=== PATIENT | female | born 2005 | race Caucasian/White ===

== ENCOUNTER 2023-09-03 15:13 | Emergency (ER) | payer OTHER, SELFPAY ==
[2023-09-03 15:22] VITALS: BP 132/81; PULSE 88; RESP 20; TEMP 37.1; O2SAT 98; BMI 23.1
--- NOTE | 2023-09-03 15:30 | DI.RAD.S_ITS ---
PROCEDURE: XR WRIST LT MIN 3V INDICATIONS: Bucked from horse with swelling pain TECHNIQUE: 3 views of the wrist were acquired. COMPARISON: [facility], CR, XR ELBOW LT MIN 3V, 09/03/2023, 15:31. [facility], CR, XR FOREARM LT 2V, 09/03/2023, 15:31. FINDINGS: Bones: There is a comminuted distal radius fracture, with intra-articular involvement. There is moderate dorsal angulation. No radiocarpal dislocation can be seen. No lunate dislocation is seen. There is a mildly displaced, comminuted ulnar styloid fracture. Soft tissues: Associated soft tissue swelling is seen. IMPRESSION: Distal radius fracture, with angulation and intra-articular involvement. There is an associated ulnar styloid fracture. Dictated by: Quentin Ingram M.D. on 09/03/2023 at 15:03 Approved by: Quentin Ingram M.D. on 09/03/2023 at 15:06
--- NOTE | 2023-09-03 15:30 | DI.RAD.S_ITS ---
PROCEDURE: XR FOREARM LT 2V INDICATIONS: Bucked from horse with swelling pain TECHNIQUE: 2 views of the forearm were acquired. COMPARISON: [facility], CR, XR WRIST LT MIN 3V, 09/03/2023, 15:31. [facility], CR, XR ELBOW LT MIN 3V, 09/03/2023, 15:31. FINDINGS: Bones: There is a comminuted fracture seen of the distal radius, with dorsal angulation. There is intra-articular involvement. There is a comminuted ulnar styloid fracture. No more proximal fracture is seen. Soft tissues: Soft tissue swelling is seen. IMPRESSION: Distal radius fracture, with intra-articular involvement. Associated ulnar styloid fracture. Dictated by: Quentin Ingram M.D. on 09/03/2023 at 15:09 Approved by: Quentin Ingram M.D. on 09/03/2023 at 15:14
--- NOTE | 2023-09-03 15:30 | DI.RAD.S_ITS ---
PROCEDURE: XR ELBOW LT MIN 3V INDICATIONS: Bucked from horse with swelling pain TECHNIQUE: 3 views of the elbow were acquired. COMPARISON: [facility], CR, XR WRIST LT MIN 3V, 09/03/2023, 15:31. FINDINGS: Bones: No fractures or dislocations. No suspicious bony lesions. Soft tissues: No elbow joint effusion. No suspicious soft tissue calcifications. IMPRESSION: No acute bony abnormality or significant joint effusion. Dictated by: Quentin Ingram M.D. on 09/03/2023 at 15:03 Approved by: Quentin Ingram M.D. on 09/03/2023 at 15:03
--- NOTE | 2023-09-03 16:18 | ED_ITS ---
HPI - Extremity Injury (Upper) General Chief Complaint: Extremity Injury, Upper Stated Complaint: lt wrist injury Time Seen by Provider: 09/03/23 16:01 Source: patient Mode of arrival: Ambulatory History of Present Illness HPI narrative: Patient is a 17-year-old female who presents with left wrist injury while at work. She reports that she fell off horse. She was wearing a helmet no head injury or other injuries. But obvious left wrist deformity. Difficult to move middle and ring finger but able to do so. No shoulder pain. No rib pain. Right-hand dominant Related Data Previous Rx's Medication Instructions Recorded hydrocodone 5 mg-acetaminophen 325 1 tab PO Q6H PRN pain #10 tabs 09/03/23 mg tablet Allergies Allergy/AdvReac Type Severity Reaction Status Date / Time bee venom protein (honey bee) Allergy Hives Verified 09/03/23 15:29 Patient History Social History Smoking Status: Never smoker Smoking Status: Never smoker alcohol intake frequency: holidays/special occasions only Substance Use Type: marijuana Exam Initial Vital Signs Initial Vital Signs: Vital Signs Temperature 98.8 F 09/03/23 15:22 Pulse Rate 88 09/03/23 15:22 Respiratory Rate 20 09/03/23 15:22 Blood Pressure 132/81 09/03/23 15:22 Pulse Oximetry 98 09/03/23 15:22 Oxygen Delivery Method Room Air 09/03/23 15:22 GENERAL: Alert 17-year-old female HEENT: Head atraumatic,EOMI, pupils reactive, face symmetric, moist mucous membranes NECK: Supple full range of motion CARDIOVASCULAR: Regular rate and rhythm without murmurs, rubs or gallops. RESPIRATORY: Breath sounds equal bilaterally, no wheezes rales or rhonchi. ABDOMEN: Soft, nontender. Normoactive bowel sounds all 4 quadrants. No guarding or rebound. EXTREMITIES: Normal range of motion, no clubbing or edema. Neurovascularly intact Left wrist obvious deformity radial pulse intact able to move finger NEUROLOGICAL: Alert and oriented x4.Normal gait and speech. SKIN: Warm, dry, no laceration, no petechiae, no rashes or lesions. Procedures Orthopedic Fracture Reduction Fracture #1: Time Out Performed: Yes Side: left Fracture Reduction Location: radius and ulna Analgesia: hematoma block Post Reduction X-rays Demonstrate: acceptable reduction Post-reduction neuro exam: intact and other (improved sensation in fingers) Post-reduction vascular exam: intact Splint Applied: Yes Patient Tolerated Procedure: Well and No complications Orthopedic Splinting/Casting Injury #1: Side: left Upper Extremity Injury Location: wrist Upper Extremity Immobilizer: sling/shoulder immobilizer and sugar tong splint Post splinting neuro exam: intact Post splinting vascular exam: intact Placed by: Provider Course Orders Ordered: ED Orders 09/03/23 15:30 XR elbow LT min 3V Stat XR forearm LT 2V Stat XR wrist LT min 3V Stat 09/03/23 17:29 XR wrist LT 2V Stat Discontinued Medications Hydrocodone Bitart/Acetaminophen (Hydrocodone/Acet 5/325 Tablet) 1 tab PO NOW ONE Stop: 09/03/23 16:11 Last Admin: 09/03/23 16:38 Dose: 1 tab Documented By: MARNI Hydrocodone Bitart/Acetaminophen (Hydrocodone/Acet 5/325 Prepack) 1 bottle MISC DIRECTED ONE Stop: 09/03/23 17:30 Last Admin: 09/03/23 18:09 Dose: 1 bottle Documented By: MARNI Vital Signs Vital signs: Vital Signs - 8 hr 09/03/23 15:22 09/03/23 18:33 Temperature 98.8 F Pulse Rate 88 87 Respiratory Rate 20 18 Blood Pressure 132/81 135/68 Pulse Oximetry 98 100 Oxygen Delivery Method Room Air Room Air MDM - Extremity Injury (Upper) Imaging Data Extremity x-ray #1: Radiologist's Impression: PROCEDURE: XR WRIST LT MIN 3V INDICATIONS: Bucked from horse with swelling pain TECHNIQUE: 3 views of the wrist were acquired. COMPARISON: [facility], CR, XR ELBOW LT MIN 3V, 09/03/2023, 15:31. [facility], CR, XR FOREARM LT 2V, 09/03/2023, 15:31. FINDINGS: Bones: There is a comminuted distal radius fracture, with intra-articular involvement. There is moderate dorsal angulation. No radiocarpal dislocation can be seen. No lunate dislocation is seen. There is a mildly displaced, comminuted ulnar styloid fracture. Soft tissues: Associated soft tissue swelling is seen. IMPRESSION: Distal radius fracture, with angulation and intra-articular involvement. There is an associated ulnar styloid fracture. Dictated by: Quentin Ingram M.D. on 09/03/2023 at 15:03 Extremity x-ray #2: Radiologist's Impression: PROCEDURE: XR ELBOW LT MIN 3V INDICATIONS: Bucked from horse with swelling pain TECHNIQUE: 3 views of the elbow were acquired. COMPARISON: [facility], XR WRIST LT MIN 3V, 09/03/2023, 15:31. FINDINGS: Bones: No fractures or dislocations. No suspicious bony lesions. Soft tissues: No elbow joint effusion. No suspicious soft tissue calcifications. IMPRESSION: No acute bony abnormality or significant joint effusion. Dictated by: Quentin Ingram M.D. on 09/03/2023 at 15:03 Extremity x-ray #3: Radiologist's Impression: PROCEDURE: XR FOREARM LT 2V INDICATIONS: Bucked from horse with swelling pain TECHNIQUE: 2 views of the forearm were acquired. COMPARISON: [facility], XR WRIST LT MIN 3V, 09/03/2023, 15:31. [facility], XR ELBOW LT MIN 3V, 09/03/2023, 15:31. FINDINGS: Bones: There is a comminuted fracture seen of the distal radius, with dorsal angulation. There is intra-articular involvement. There is a comminuted ulnar styloid f racture. No more proximal fracture is seen. Soft tissues: Soft tissue swelling is seen. IMPRESSION: Distal radius fracture, with intra-articular involvement. Associated ulnar styloid fracture. Dictated by: Quentin Ingram M.D. on 09/03/2023 at 15:09 post reduction: Radiologist's Impression: PROCEDURE: XR WRIST LT 2V INDICATIONS: post reduction TECHNIQUE: 2 views of the wrist were acquired. COMPARISON: [facility], XR FOREARM LT 2V, 09/03/2023, 15:31. [facility], XR WRIST LT MIN 3V, 09/03/2023, 15:31. FINDINGS: Bones: On this post reduction study, there is improved anatomic alignment of the distal radius fracture. There is also improved alignment of the ulnar styloid fracture. Soft tissues: Soft tissue swelling is seen. The overlying casting material limits evaluation of fine detail. IMPRESSION: Improved anatomic alignment of the distal radius fracture and the ulnar styloid fracture. Dictated by: Quentin Ingram M.D. on 09/03/2023 at 17:[address] [facility] Narrative Medical decision making narrative: Patient is a healthy 17-year-old female who presents today with left wrist deformity after falling off horse. She initially some numbness tingling in middle and ring finger which improved after reduction. She tolerated procedure well including hematoma block and reduction. Dr. Briceño updated on patient's symptoms test results reviewed x-rays agrees with outpatient follow-up Discharge Plan Departure Patient Disposition: Home Clinical Impression: Fracture of wrist Instructions: DI for Wrist Fracture Activity Restrictions/Additional Instructions: *You have been diagnosed with left wrist fracture *What to do: At this time keep splint on at all times use plastic bag and duct tape to shower. Use sling while active. It is likely that you may require surgery. Please call orthopedics tomorrow to schedule a follow-up appointment. *Continue to take medications as directed Chinle 1 tablet every 6 hours if needed for severe pain or at night to help with sleeping Tylenol 650 mg every 4-6 hours for [id number] pain *Follow up with your primary care provider in 2-3 days or call [phone] *Return to ER if you should have increased numbness tingling weakness [or] any new, worsening or concerning symptoms CONTROLLED SUBSTANCE DISCHARGE (Narcotoic/benzodiazepine/Flexeril/Phenergan) 1. You have been prescribed narcotic medications, it does have acetaminophen/Tylenol/paracetamol in it, DO NOT TAKE MORE THAN 4,00mg in 24 hours of Tylenol. TRAMADOL DOES NOT CONTAIN TYLENOL 2. Please understand that we cannot provide further refills of narcotics, benzodiazepines or controlled substances through the ED and her pain management will need to be through your provider. 3. While on these medications you cannot drive or operate heavy machinery. 4. You cannot sign legal documents or perform any duties such as this. 5. As long as you're taking opiate pain medications he should also be taking a stool softener such as Colace, Dulcolax, MiraLAX or prune juice, to help avoid constipation. Prescriptions: New hydrocodone-acetaminophen 5-325 mg tablet 1 tab PO Q6H PRN (Reason: pain) Qty: 10 0RF Referrals: [facility] [Provider Group] Stand Alone Forms: Patient Portal/API
[2023-09-03] MEDS: HYDROCODONE/ACET 5/325 TABLET 1 TAB PO (16:38)
--- NOTE | 2023-09-03 17:29 | DI.RAD.S_ITS ---
PROCEDURE: XR WRIST LT 2V INDICATIONS: post reduction TECHNIQUE: 2 views of the wrist were acquired. COMPARISON: [facility], CR, XR FOREARM LT 2V, 09/03/2023, 15:31. [facility], CR, XR WRIST LT MIN 3V, 09/03/2023, 15:31. FINDINGS: Bones: On this post reduction study, there is improved anatomic alignment of the distal radius fracture. There is also improved alignment of the ulnar styloid fracture. Soft tissues: Soft tissue swelling is seen. The overlying casting material limits evaluation of fine detail. IMPRESSION: Improved anatomic alignment of the distal radius fracture and the ulnar styloid fracture. Dictated by: Quentin Ingram M.D. on 09/03/2023 at 17:04 Approved by: Quentin Ingram M.D. on 09/03/2023 at 17:05
[2023-09-03] MEDS: HYDROCODONE/ACET 5/325 PREPACK 1 BOTTLE MISC (18:09)
[2023-09-03 18:33] VITALS: BP 135/68; PULSE 87; RESP 18; O2SAT 100
== END 2023-09-03 18:30 | disposition home or self-care (01) ==
PROVIDERS: Emergency Provider Emergency Medicine
DX: S52.572A Other intraarticular fracture of lower end of left radius, initial encounter for closed fracture (principal); S52.612A Displaced fracture of left ulna styloid process, initial encounter for closed fracture; V80.010A Animal-rider injured by fall from or being thrown from horse in noncollision accident, initial encounter; Y93.52 Activity, horseback riding; Y99.0 Civilian activity done for income or pay
CPT/HCPCS: 25605; 73080; 73090; 73100; 73110; 99283